=== PATIENT | male | born 1975 | race Hispanic/Latino ===

== ENCOUNTER 2017-01-08 07:58 | Emergency (ER) | payer SELFPAY ==
[~2017-01-08] VITALS: Ht 152.4 cm; Wt 66.4 kg
[~2017-01-08 07:58] MED LIST: AMOXICILLIN500 MG PO; CEPHALEXIN500 MG PO; MEDDOSEPAK PO; ROBITUSSIN AC10 ML PO; ZOFRAN ODT4 MG PO
[2017-01-08] MEDS ORDERED: CEPHALEXIN500 M1 PO (08:18)
[2017-01-08] MEDS ORDERED: BACTRIM DS1 TAB PO (08:18)
[2017-01-08] MEDS ORDERED: TOBRADEX 2.5 ML OS (08:18)
[2017-01-08 08:20] VITALS: BP 140/90
== END 2017-01-08 08:28 | disposition home or self-care (01) | DRG 125 ==
LOC: ED 07:58
DX: H00.016 Hordeolum externum left eye, unspecified eyelid (principal); F17.210 Nicotine dependence, cigarettes, uncomplicated

== ENCOUNTER 2018-06-30 10:42 | Emergency (ER) | payer SELFPAY ==
[~2018-06-30] VITALS: Ht 152.4 cm; Wt 80.0 kg
[~2018-06-30 10:42] MED LIST changes: +BACTRIM DS1 TAB PO; +CEPHALEXIN500 M1 PO; +TOBRADEX 2.5 ML OS
[2018-06-30 12:15] VITALS: BP 135/67
== END 2018-06-30 12:15 | disposition home or self-care (01) | DRG 605 ==
LOC: ED 10:42
PROC: 0HQ4XZZ Repair Neck Skin, External Approach (ICD-10-PCS; principal; 2018-06-30)
DX: S11.93XA Puncture wound without foreign body of unspecified part of neck, initial encounter (principal); F17.210 Nicotine dependence, cigarettes, uncomplicated; X58.XXXA Exposure to other specified factors, initial encounter; Y92.009 Unspecified place in unspecified non-institutional (private) residence as the place of occurrence of the external cause

== ENCOUNTER 2019-02-11 17:51 | Emergency (ER) | payer SELFPAY ==
[~2019-02-11] VITALS: Ht 152.4 cm; Wt 80.0 kg
[2019-02-11 18:30] VITALS: BP 140/86
== END 2019-02-11 18:34 | disposition home or self-care (01) | DRG 151 ==
LOC: ED 17:51
DX: R04.0 Epistaxis (principal); F17.210 Nicotine dependence, cigarettes, uncomplicated